=== PATIENT | male | born 1960 | race Caucasian/White ===

== ENCOUNTER → 2024-08-22 | Outpatient (CLI) | payer OTHER ==
[~2024-08-22] MED LIST: BUPR-71; BUPR75TA5 PO; CAPE1TAB2 PO; ISOVUE-370 76% 100ML VIAL As Ordered ONE; LEXA1TAB; LIDO30CR18 TOP; ONDA-282; ONDA-284 PO; OXYC-517; PERCOCET PO; PROC10TA5 PO; PROT1TAB2 PO; SENN8.6T28 PO; [UNRECOGNIZED DRUG - OTHER] XX
== END ==
LOC: M RAD 14:08
PROVIDERS: ATTEND Internal Medicine Hematology & Oncology
DX: C18.9 Malignant neoplasm of colon, unspecified (principal); I71.21 Aneurysm of the ascending aorta, without rupture; K76.89 Other specified diseases of liver; K43.5 Parastomal hernia without obstruction or gangrene
CPT/HCPCS: 71260; 74177; Q9967

== ENCOUNTER → 2024-10-21 | Outpatient (CLI) | payer OTHER ==
[~2024-10-21] VITALS: Ht 170.2 cm; Wt 65.5 kg
[~2024-10-21] MED LIST changes: +DEXT30LI; +FENT1DIS14 TOP; -ISOVUE-370 76% 100ML VIAL As Ordered ONE; +LACT20EL PO; +MELO7.5T35 PO; +MIRA3350 PO; +OXYC10TA12 PO; +OXYC7.5T3; +RELI150T PO; +TRAZ-252 PO
[2024-10-21 10:48] VITALS: BP 144/85; O2SAT 95
== END ==
LOC: M PAL 10:13
PROVIDERS: ATTEND Physician Assistant
DX: Z51.5 Encounter for palliative care (principal); C18.9 Malignant neoplasm of colon, unspecified; C78.00 Secondary malignant neoplasm of unspecified lung; Z79.891 Long term (current) use of opiate analgesic; K59.00 Constipation, unspecified; Z79.899 Other long term (current) drug therapy

== ENCOUNTER → 2024-11-27 | Outpatient (CLI) | payer OTHER ==
[~2024-11-27] VITALS: Ht 170.2 cm; Wt 61.6 kg
[~2024-11-27] MED LIST changes: +LINZ145C PO; +OXYC-1 PO; +OXYC7.5T3 PO; +TRAZ-257 PO
[2024-11-27 14:17] VITALS: BP 123/84; O2SAT 97
== END ==
LOC: M PAL 13:38
PROVIDERS: ATTEND Physician Assistant
DX: Z51.5 Encounter for palliative care (principal); C18.9 Malignant neoplasm of colon, unspecified; C78.00 Secondary malignant neoplasm of unspecified lung; Z92.21 Personal history of antineoplastic chemotherapy; R52 Pain, unspecified; Z79.891 Long term (current) use of opiate analgesic; Z79.899 Other long term (current) drug therapy

== ENCOUNTER → 2024-12-09 | Outpatient (CLI) | payer OTHER ==
[~2024-12-09] MED LIST changes: +RELI150T
== END ==
LOC: M PAL 13:28
PROVIDERS: ATTEND Physician Assistant
DX: Z51.5 Encounter for palliative care (principal); C18.9 Malignant neoplasm of colon, unspecified; C78.00 Secondary malignant neoplasm of unspecified lung; Z79.891 Long term (current) use of opiate analgesic; Z79.899 Other long term (current) drug therapy; Z79.83 Long term (current) use of bisphosphonates

== ENCOUNTER → 2025-02-19 | Outpatient (CLI) | payer OTHER ==
[~2025-02-19] MED LIST changes: +OXYC30TA72 PO; +PROM12.56 PO; +SIME1CAP4 PO
== END ==
LOC: M PAL 11:30
PROVIDERS: ATTEND Physician Assistant
DX: Z51.5 Encounter for palliative care (principal); C18.9 Malignant neoplasm of colon, unspecified; C78.00 Secondary malignant neoplasm of unspecified lung; Z92.21 Personal history of antineoplastic chemotherapy; Z79.891 Long term (current) use of opiate analgesic; Z79.899 Other long term (current) drug therapy

== ENCOUNTER → 2025-02-21 | Outpatient (CLI) | payer OTHER ==
[~2025-02-21] MED LIST changes: +ISOVUE-370 76% 100 ML VIAL As Ordered ONE
== END ==
LOC: M RAD 14:14
PROVIDERS: ATTEND Specialist
DX: C18.7 Malignant neoplasm of sigmoid colon (principal); C78.01 Secondary malignant neoplasm of right lung; C78.02 Secondary malignant neoplasm of left lung
CPT/HCPCS: 71260; 74177; Q9967

== ENCOUNTER → 2025-02-26 | Outpatient (CLI) | payer OTHER ==
[~2025-02-26] MED LIST changes: -ISOVUE-370 76% 100 ML VIAL As Ordered ONE
== END ==
LOC: M PAL 09:00
PROVIDERS: ATTEND Physician Assistant
DX: Z51.5 Encounter for palliative care (principal); C18.9 Malignant neoplasm of colon, unspecified; C78.00 Secondary malignant neoplasm of unspecified lung; Z79.891 Long term (current) use of opiate analgesic; Z79.899 Other long term (current) drug therapy

== ENCOUNTER → 2025-04-14 | Outpatient (CLI) | payer OTHER ==
[~2025-04-14] MED LIST changes: +MAGN250T9 PO; +MAGN400T2 PO
== END ==
LOC: M RAD 10:25
PROVIDERS: ATTEND Specialist
DX: M54.50 Low back pain, unspecified (principal); C18.9 Malignant neoplasm of colon, unspecified
CPT/HCPCS: 78306; A9503

== ENCOUNTER → 2025-04-22 | Outpatient (CLI) | payer OTHER ==
[~2025-04-22] MED LIST changes: +D3 S1CAP3
== END ==
LOC: M ONCM 07:12
PROVIDERS: ATTEND Dietitian, Registered
DX: C19 Malignant neoplasm of rectosigmoid junction (principal); C78.00 Secondary malignant neoplasm of unspecified lung; Z71.3 Dietary counseling and surveillance; Z68.20 Body mass index [BMI] 20.0-20.9, adult

== ENCOUNTER → 2025-05-08 | Outpatient (CLI) | payer OTHER ==
[~2025-05-08] MED LIST changes: +NARC1SPR NARES; +OXYC20TA2 PO; +OXYC40TA40 PO
== END ==
LOC: M PAL 13:32
PROVIDERS: ATTEND Physician Assistant
DX: Z51.5 Encounter for palliative care (principal); C18.9 Malignant neoplasm of colon, unspecified; C78.00 Secondary malignant neoplasm of unspecified lung; R52 Pain, unspecified; G47.9 Sleep disorder, unspecified; K59.00 Constipation, unspecified; R11.0 Nausea; Z79.1 Long term (current) use of non-steroidal anti-inflammatories (NSAID); Z79.891 Long term (current) use of opiate analgesic; Z79.899 Other long term (current) drug therapy; Z92.21 Personal history of antineoplastic chemotherapy

== ENCOUNTER → 2025-05-21 | Outpatient (CLI) | payer OTHER ==
[~2025-05-21] MED LIST changes: +BUPR-363 PO; -BUPR75TA5 PO; +LINZ290C PO; +OXYC30TA PO; +SERT-141 PO
== END ==
LOC: M PAL 13:54
PROVIDERS: ATTEND Physician Assistant
DX: Z51.5 Encounter for palliative care (principal); C18.9 Malignant neoplasm of colon, unspecified; C78.00 Secondary malignant neoplasm of unspecified lung; Z92.21 Personal history of antineoplastic chemotherapy; Z79.891 Long term (current) use of opiate analgesic; Z79.899 Other long term (current) drug therapy

== ENCOUNTER → 2025-05-28 | Outpatient (CLI) | payer OTHER | LOC: M PAL 09:41 | PROVIDERS: ATTEND Physician Assistant | DX: Z51.5 Encounter for palliative care (principal); C18.9 Malignant neoplasm of colon, unspecified; C78.00 Secondary malignant neoplasm of unspecified lung; Z92.21 Personal history of antineoplastic chemotherapy; Z79.891 Long term (current) use of opiate analgesic; Z79.899 Other long term (current) drug therapy; Z79.83 Long term (current) use of bisphosphonates ==

== ENCOUNTER → 2025-06-04 | Outpatient (CLI) | payer OTHER | LOC: M PAL 10:17 | PROVIDERS: ATTEND Physician Assistant | DX: Z51.5 Encounter for palliative care (principal); C18.9 Malignant neoplasm of colon, unspecified; C78.00 Secondary malignant neoplasm of unspecified lung; Z92.21 Personal history of antineoplastic chemotherapy; Z79.891 Long term (current) use of opiate analgesic; Z79.899 Other long term (current) drug therapy; Z79.83 Long term (current) use of bisphosphonates ==

== ENCOUNTER → 2025-07-02 | Outpatient (CLI) | payer OTHER ==
[~2025-07-02] MED LIST changes: -OXYC40TA40 PO; +OXYC40TA41 PO
== END ==
LOC: M PAL 15:43
PROVIDERS: ATTEND Physician Assistant
DX: Z51.5 Encounter for palliative care (principal); C18.9 Malignant neoplasm of colon, unspecified; C78.00 Secondary malignant neoplasm of unspecified lung; Z92.21 Personal history of antineoplastic chemotherapy; Z79.891 Long term (current) use of opiate analgesic; Z79.899 Other long term (current) drug therapy; Z79.83 Long term (current) use of bisphosphonates